=== PATIENT | male | born 1960 | race Caucasian/White ===

== ENCOUNTER 2018-06-16 13:23 | Observation (INO) ==
[2018-06-16 14:34] LABS: Baso # (Auto) 0.1 th/mm3 (0.0-0.2); Baso % (Auto) 0.9 % (0.0-2.0); Eos # (Auto) 0.3 th/mm3 (0.0-0.4); Eos % (Auto) 2.8 % (0.0-4.0); Hematocrit 43.9 % (39.0-51.0); Lymph # (Auto) 2.4 th/mm3 (1.0-4.8); Lymph % (Auto) 25.8 % (9.0-44.0); Mean Corpuscular HGB Conc 34.1 % (32.0-36.0); Mean Corpuscular Hemoglobin 32.4 pg (27.0-34.0); Mean Platelet Volume 8.8 fL (7.0-11.0); Mono # (Auto) 0.5 th/mm3 (0.0-0.9); Mono % (Auto) 5.9 % (0.0-8.0); Neut % (Auto) 64.6 % (16.0-70.0); Platelet Count 199 th/mm3 (150-450); Red Blood Count 4.62 mil/mm3 (4.50-5.90); White Blood Count 9.3 th/mm3 (4.0-11.0)
--- NOTE | 2018-06-16 14:34 | XR ---
EXAM DATE: 06/16/2018 2:30 PM EDT AGE/SEX: 58 years / Male INDICATIONS: Chest pain, short of breath. CLINICAL DATA: This is the patient's initial encounter. Patient reports that signs and symptoms have been present for 1 day and indicates a pain score of 7/10. MEDICAL/SURGICAL HISTORY: . smokes. Coronary artery stent. COMPARISON: POI, XR CHEST PA AND LAT, 11/09/2017. . FINDINGS: A single AP view of the chest demonstrates the lungs to be symmetrically aerated without evidence of mass, infiltrate or effusion. The cardiomediastinal contours are unremarkable. Osseous structures a re intact. CONCLUSION: Negative examination. Electronically signed by: Meliton Lantigua MD 06/16/2018 2:33 PM EDT
--- NOTE | 2018-06-16 14:41 | ED ---
HPI General Chief complaint: Chest Pain Stated complaint: Chest Pain Time Seen by Provider: 06/16/18 13:38 Source: patient Mode of arrival: ambulatory Limitations: no limitations History of Present Illness HPI narrative: he has been having on and off chest pains for years and has some type of angina he stayed but he does not appear to be on medications for it.The patient is a 58-year-old male presenting with complaint of left-sided chest pain rating shoulder and shortness of breath for the past week or so. Patient also reported to triage that he has being having nausea vomiting and shortness of breath. He stated that since this past Wednesday he is just not feeling right she tried to go to work on Wednesday but he had to leave 3 hours later because he felt very fatigued. On Wednesday he was started on metoprolol and NSAID as well as isosorbide and then went to the hospital in [place] was so advised to see a orthotic assistant who started him on metoprolol the patient is here because he does not feel comfortable at the other hospital and wants to get evaluated to see what exactly is going on hemodynamically stable at this time. Onset (ago): day(s) (6) Location: chest (Left upper chest) Radiation: extremity (Left shoulder) Severity: mild Severity scale (1-10): 4 Quality: other Relieving factors: rest Exacerbating factors: other (Exertion) Associated symptoms: chest pain, diaphoresis, malaise, nausea/vomiting, shortness of breath and weakness Treatments prior to arrival: none and aspirin (81mg) Related Data Home Medications Medication Instructions Recorded Confirmed etodolac 200 mg PO BID 06/16/18 06/16/18 isosorbide mononitrate 30 mg PO DAILY 06/16/18 06/16/18 metoprolol tartrate 25 mg PO BID 06/16/18 06/16/18 rosuvastatin 10 mg PO DAILY 06/16/18 06/16/18 Allergies Allergy/AdvReac Type Severity Reaction Status Date / Time No Known Allergies Allergy Verified 06/16/18 13:32 Review of Systems ROS: all other systems reviewed are negative [facility] Medical History Medical History Heart abnormality (Acute) Surgical History Surgical History Stented coronary artery (Acute) Social History Social History Second Hand Smoke Exposure: Yes Smoking Status: Current every day smoker Tobacco Type: Cigarettes How Often Do You Have a Drink Containing Alcohol: Never Recent Travel in [facility] within the Last 8 Weeks: No Recent Out of Country Travel within the Last 8 Weeks: No Immunization History Tetanus Immunization: Unsure Exam Narrative Exam Narrative: GENERAL: Alert and oriented no distress SKIN: Focused skin assessment warm/dry. HEAD: Atraumatic. Normocephalic. EYES: Pupils equal and round. No scleral icterus. No injection or drainage. ENT: No nasal bleeding or discharge. Mucous membranes pink and moist. NECK: Trachea midline. No JVD. CARDIOVASCULAR: Regular rate and rhythm. No murmur appreciated. RESPIRATORY: No accessory muscle use. Clear to auscultation. Breath sounds equal bilaterally. GASTROINTESTINAL: Abdomen soft, non-tender, nondistended. Hepatic and splenic margins not palpable. MUSCULOSKELETAL: No obvious deformities. No clubbing. No cyanosis. No edema. NEUROLOGICAL: Awake and alert. No obvious cranial nerve deficits. Motor grossly within normal limits. Normal speech. PSYCHIATRIC: Appropriate mood and affect; insight and judgment normal. Course Hospital Course: Due to complaint of atypical chest pain and nonspecific complaints we initiated a cardiac workup. Initial troponin and EKG have been unremarkable. Patient stated he feels exactly how he felt when he came in without any improvement we will placed under chest pain unit to rule out acute coronary syndrome. Hemodynamically stable alert and oriented no focal deficits. Reevaluation(s) Reevaluation #1: Patient says he feels about the same blood pressures improved 144/73 with a pulse of 95 bpm. When notified that he will be admitted to the chest pain unit. Initial Documented Vital Signs Temperature 98.2 F 06/16/18 13:26 Pulse Rate 95 H 06/16/18 13:26 Respiratory Rate 16 06/16/18 13:26 Blood Pressure 144/73 H 06/16/18 13:26 Pulse Oximetry 98 06/16/18 13:26 Last Documented Vital Signs Temperature 98.2 F 06/16/18 13:26 Pulse Rate 95 H 06/16/18 13:26 Respiratory Rate 16 06/16/18 13:26 Blood Pressure 144/73 H 06/16/18 13:26 Pulse Oximetry 98 06/16/18 13:26 Medical Decision Making MDM Narrative Medical Screen Exam Complete: Yes Emergency Medical Condition: Yes Medical Records Medical records reviewed: Yes I reviewed the patient's medical records. Lab Data Lab results reviewed: Yes I reviewed the patient's lab results. Result diagrams: 06/16/18 14:00 06/16/18 14:00 Lab Results 06/16/18 06/16/18 06/16/18 Range/Units 14:00 14:00 14:00 WBC 9.3 (4.0-11.0) th/mm3 RBC 4.62 (4.50-5.90) mil/mm3 Hgb 15.0 (13.0-17.0) gm/dL Hct 43.9 (39.0-51.0) % MCV 95.0 (80.0-100.0) fL MCH 32.4 (27.0-34.0) pg MCHC 34.1 (32.0-36.0) % RDW 13.0 (11.6-17.2) % Plt Count 199 (150-450) th/mm3 MPV 8.8 (7.0-11.0) fL Neut % (Auto) 64.6 (16.0-70.0) % Lymph % (Auto) 25.8 (9.0-44.0) % [place] % (Auto) 5.9 (0.0-8.0) % Eos % (Auto) 2.8 (0.0-4.0) % Baso % (Auto) 0.9 (0.0-2.0) % Neut # (Auto) 6.0 (1.8-7.7) th/mm3 Lymph # (Auto) 2.4 (1.0-4.8) th/mm3 [place] # (Auto) 0.5 (0.0-0.9) th/mm3 Eos # (Auto) 0.3 (0.0-0.4) th/mm3 Baso # (Auto) 0.1 (0.0-0.2) th/mm3 WBC Differential . Differential Comment Auto diff final PT 10.2 (9.8-11.6) sec INR 1.0 Ratio APTT 26.5 (24.3-30.1) sec D-Dimer Quant (PE/DVT) 0.46 (0.00-0.50) mg/L FEU Sodium 139 (136-145) meq/L Potassium 3.6 (3.5-5.1) meq/L Chloride 106 (98-107) meq/L Carbon Dioxide 23.4 (21.0-32.0) meq/L Anion Gap 10 (5-15) meq/L BUN 17 (7-18) mg/dL Creatinine 1.00 (0.60-1.30) mg/dL Estimated GFR 77 L (>89) mL/min Random Glucose 131 H (74-106) mg/dL Calcium 8.3 L (8.5-10.1) mg/dL Magnesium 2.1 (1.5-2.5) mg/dL Total Bilirubin 0.3 (0.2-1.0) mg/dL AST 19 (15-37) U/L ALT 31 (12-78) U/L Alkaline Phosphatase 88 (45-117) U/L Troponin I Less than 0.02 L (0.02-0.05) ng/mL B-Natriuretic Peptide (0-100) pg/mL Total Protein 7.8 (6.4-8.2) g/dL Albumin 3.4 (3.4-5.0) g/dL 06/16/18 Range/Units 14:00 WBC (4.0-11.0) th/mm3 RBC (4.50-5.90) mil/mm3 Hgb (13.0-17.0) gm/dL Hct (39.0-51.0) % MCV (80.0-100.0) fL MCH (27.0-34.0) pg MCHC (32.0-36.0) % RDW (11.6-17.2) % Plt Count (150-450) th/mm3 MPV (7.0-11.0) fL Neut % (Auto) (16.0-70.0) % Lymph % (Auto) (9.0-44.0) % [place] % (Auto) (0.0-8.0) % Eos % (Auto) (0.0-4.0) % Baso % (Auto) (0.0-2.0) % Neut # (Auto) (1.8-7.7) th/mm3 Lymph # (Auto) (1.0-4.8) th/mm3 [place] # (Auto) (0.0-0.9) th/mm3 Eos # (Auto) (0.0-0.4) th/mm3 Baso # (Auto) (0.0-0.2) th/mm3 WBC Differential Differential Comment PT (9.8-11.6) sec INR Ratio APTT (24.3-30.1) sec D-Dimer Quant (PE/DVT) (0.00-0.50) mg/L FEU Sodium (136-145) meq/L Potassium (3.5-5.1) meq/L Chloride (98-107) meq/L Carbon Dioxide (21.0-32.0) meq/L Anion Gap (5-15) meq/L BUN (7-18) mg/dL Creatinine (0.60-1.30) mg/dL Estimated GFR (>89) mL/min Random Glucose (74-106) mg/dL Calcium (8.5-10.1) mg/dL Magnesium (1.5-2.5) mg/dL Total Bilirubin (0.2-1.0) mg/dL AST (15-37) U/L ALT (12-78) U/L Alkaline Phosphatase (45-117) U/L Troponin I (0.02-0.05) ng/mL B-Natriuretic Peptide 5 (0-100) pg/mL Total Protein (6.4-8.2) g/dL Albumin (3.4-5.0) g/dL Imaging Data Radiologist's impression: Chest X-Ray 06/16/18 14:00 CONCLUSION: Negative examination. ECG Data EKG Prior to Arrival: No Attestation: I personally reviewed and interpreted this ECG as follows: Interpretation: Normal sinus rhythm 86 bpm [place] interval 154 ms QTc 394. Normal axis. Nonspecific ST-T wave abnormalities. No signs of acute ischemia. Discharge Plan Discharge Disposition Patient Disposition: 30 Still Patient Discharge Condition Condition: Good Discharge Details Diagnosis: Atypical chest pain Physicians Team ED Provider: Jean Maldonado Rxs /Orders / Referrals /Forms Prescriptions: No Action etodolac 200 mg Capsule 200 mg PO BID RF: 0 isosorbide mononitrate 30 mg Tablet Extended Release 24 Hr 30 mg PO DAILY RF: 0 rosuvastatin 10 mg Tablet 10 mg PO DAILY RF: 0 metoprolol tartrate 25 mg Tablet 25 mg PO BID RF: 0 Discharge Instructions Patient Printed Instructions: Chest Pain (ED) Status ED Status: With Doctor
[2018-06-16 14:47] LABS: Activated Partial Thrombo Time 26.5 sec (24.3-30.1); Prothrombin Time 10.2 sec (9.8-11.6)
[2018-06-16 14:53] LABS: D-Dimer 0.46 mg/L FEU (0.00-0.50)
[2018-06-16 14:59] LABS: Alanine Aminotransferase 31 U/L (12-78); Albumin 3.4 g/dL (3.4-5.0); Alkaline Phosphatase 88 U/L (45-117); Anion Gap 10 meq/L (5-15); Aspartate Aminotransferase 19 U/L (15-37); Blood Urea Nitrogen 17 mg/dL (7-18); Calcium 8.3 mg/dL (8.5-10.1); Carbon Dioxide 23.4 meq/L (21.0-32.0); Chloride 106 meq/L (98-107); Glomerular Filtration Rate 77 mL/min (>89); Glucose,Random 131 mg/dL (74-106); Magnesium 2.1 mg/dL (1.5-2.5); Potassium 3.6 meq/L (3.5-5.1); Sodium 139 meq/L (136-145); Total Protein 7.8 g/dL (6.4-8.2)
[2018-06-16] MEDS ORDERED: Iohexol 350 MG/ML 100 ML Vial (for Cath Lab) IVCONTRAST ONE (15:45)
[2018-06-16 17:00] LABS: Creatine Kinase 95 U/L (39-308)
[2018-06-16 19:41] LABS: Creatine Kinase 99 U/L (39-308)
[2018-06-17 04:05] VITALS: O2SAT 97
[2018-06-17] MEDS ORDERED: Acetaminophen 500 MG Tablet PO PRN (07:37)
--- NOTE | 2018-06-17 07:47 | P.HPCA ---
History of Present Illness [facility] Care Physician: [facility]KNOWN [facility] - History History Provided By: Patient - Medical History Medical History: Medical History (Last Reviewed 06/16/18 @ 14:39 by Jean Maldonado DO) Heart abnormality - Surgical History Surgical History: Surgical History (Last Reviewed 06/16/18 @ 14:39 by Jean Maldonado DO) Stented coronary artery - Tobacco History Second Hand Smoke Exposure: No Tobacco Use In Past 30 Days: Yes Smoking Status: Never smoker Tobacco Type: Cigarettes - Alcohol History How Often Do You Have a Drink Containing Alcohol: Monthly or less - Substance Use History Substance History: No History of Abuse - Travel History Recent Travel in the [place] Within the Last 8 Weeks: No Recent Travel Out of the Country Within the Last 8 Weeks: No - Immunization History Tetanus Immunization: Unsure Medications and Allergies Active Medications: Active Medications Acetaminophen (Tylenol) 500 mg PO Q4H PRN PRN Reason: HEADACHE Nitroglycerin (Nitrostat Sl) 0.4 mg SL Q5M PRN PRN Reason: CHEST PAIN Ondansetron HCl (Zofran Inj) 4 mg IV.PUSH Q6H PRN PRN Reason: NAUSEA Sodium Chloride (Ns Flush) 2 ml IV.FLUSH UNSCH PRN PRN Reason: FLUSH AFTER USING IV ACCESS Sodium Chloride (Ns Flush) 2 ml IV.FLUSH BID WANDA Last Admin: 06/16/18 22:21 Dose: 2 ml Sodium Chloride (Ns Flush) 2 ml IV.FLUSH PRN PRN PRN Reason: FLUSH AFTER USING IV ACCESS Allergies Allergy/AdvReac Type Severity Reaction Status Date / Time No Known Allergies Allergy Verified 06/16/18 13:32 Home Medications Medication Instructions Recorded Confirmed Type etodolac 200 mg PO BID 06/16/18 06/16/18 History isosorbide mononitrate 30 mg PO DAILY 06/16/18 06/16/18 History metoprolol tartrate 25 mg PO BID 06/16/18 06/16/18 History rosuvastatin 10 mg PO DAILY 06/16/18 06/16/18 History Exam Vital signs: Vital Signs 06/16/18 13:26 06/16/18 14:00 06/16/18 16:03 Temperature 98.2 F Pulse Rate 95 H 81 Respiratory Rate 16 17 Blood Pressure 144/73 H 127/64 Pulse Oximetry 98 100 98 06/16/18 17:33 06/16/18 18:01 06/16/18 18:11 Temperature 97.8 F Pulse Rate 74 71 Respiratory Rate 16 Blood Pressure 148/80 H Pulse Oximetry 96 99 06/16/18 19:28 06/16/18 20:00 06/16/18 23:35 Temperature 98.8 F 98.8 F Pulse Rate 71 65 77 Respiratory Rate 17 17 Blood Pressure 123/64 105/61 Pulse Oximetry 96 96 06/17/18 04:00 Temperature 98.8 F Pulse Rate 68 Respiratory Rate 16 Blood Pressure 121/64 Pulse Oximetry 97 Intake & Output 06/16/18 06/17/18 06/17/18 18:59 06:59 18:59 Intake Total 250 / 250 Balance 250 / 250 Weight 105.233 kg 105.233 kg Intake: Oral 250 / 250 Other: Weight On Admission 105.233 kg Results 06/16/18 14:00 06/16/18 14:00 Cardiac Enzymes 06/16/18 06/16/18 06/16/18 Range/Units 14:00 14:00 15:50 AST 19 (15-37) U/L Troponin I Less than 0.02 L Less than 0.02 L (0.02-0.05) ng/mL B-Natriuretic Peptide 5 (0-100) pg/mL 06/16/18 Range/Units 18:45 AST (15-37) U/L Troponin I Less than 0.02 L (0.02-0.05) ng/mL B-Natriuretic Peptide (0-100) pg/mL Coagulation 06/16/18 06/16/18 Range/Units 14:00 14:00 PT 10.2 (9.8-11.6) sec APTT 26.5 (24.3-30.1) sec B-Natriuretic Peptide 5 (0-100) pg/mL CBC 06/16/18 Range/Units 14:00 WBC 9.3 (4.0-11.0) th/mm3 RBC 4.62 (4.50-5.90) mil/mm3 Hgb 15.0 (13.0-17.0) gm/dL Hct 43.9 (39.0-51.0) % Plt Count 199 (150-450) th/mm3 Neut # (Auto) 6.0 (1.8-7.7) th/mm3 Lymph # (Auto) 2.4 (1.0-4.8) th/mm3 [place] # (Auto) 0.5 (0.0-0.9) th/mm3 Eos # (Auto) 0.3 (0.0-0.4) th/mm3 Baso # (Auto) 0.1 (0.0-0.2) th/mm3 Comprehensive Metabolic Panel 06/16/18 Range/Units 14:00 Sodium 139 (136-145) meq/L Potassium 3.6 (3.5-5.1) meq/L Chloride 106 (98-107) meq/L Carbon Dioxide 23.4 (21.0-32.0) meq/L BUN 17 (7-18) mg/dL Creatinine 1.00 (0.60-1.30) mg/dL Calcium 8.3 L (8.5-10.1) mg/dL AST 19 (15-37) U/L ALT 31 (12-78) U/L Alkaline Phosphatase 88 (45-117) U/L Total Protein 7.8 (6.4-8.2) g/dL Albumin 3.4 (3.4-5.0) g/dL Intake and Output 06/16/18 06/17/18 06/17/18 22:59 06:59 14:59 Intake Total 250 / 250 Balance 250 / 250 Intake: Oral 250 / 250 Other: Weight 105.233 kg Weight On Admission 105.233 kg Caprini VTE Risk Assessment Caprini Risk Assessment Model: Point Value = 1 Point Value = 2 Point Value = 3 Point Value = 5 Age 41-60 Minor surgery BMI > 25 kg/m2 Swollen legs Varicose veins or History of unexplained or recurrent spontaneous Oral contraceptives or hormone replacement Sepsis (< 1 month) Serious lung disease, including pneumonia (< 1 month) Abnormal pulmonary function Acute myocardial infarction Congestive heart failure (< 1 month) History of inflammatory bowel disease Medical patient at bed rest Age 61-74 Arthroscopic surgery Major open surgery (> 45 min) Laparoscopic surgery (> 45 min) Malignancy Confined to bed (> 72 hours) Immobilizing plaster cast Central venous access Age >= 75 History of VTE Family history of VTE Factor V Leiden Prothrombin [id number] Lupus anticoagulant Anticardiolipin antibodies Elevated serum homocysteine Heparin-induced thrombocytopenia Other congenital or acquired thrombophilia Stroke (< 1 month) Elective arthroplasty Hip, pelvis, or leg fracture Acute spinal cord injury (< 1 month) Prophylaxis Regimen: Total Risk Factor Score Risk Level Prophylaxis Regimen 0-1 Low Early ambulation 2 Moderate Order ONE of the following: *Sequential Compression Device (SCD) *Heparin 5000 units SQ BID 3-4 Higher Order ONE of the following medications: *Heparin 5000 units SQ TID *Enoxaparin/Lovenox 40 mg SQ daily (WT < 150 kg, CrCl > 30 mL/min) *Enoxaparin/Lovenox 30 mg SQ daily (WT < 150 kg, CrCl > 10-29 mL/min) *Enoxaparin/Lovenox 30 mg SQ BID (WT < 150 kg, CrCl > 30 mL/min) AND/OR *Sequential Compression Device (SCD) 5 or more Highest Order ONE of the following medications: *Heparin 5000 units SQ TID (Preferred with Epidurals) *Enoxaparin/Lovenox 40 mg SQ daily (WT < 150 kg, CrCl > 30 mL/min) *Enoxaparin/Lovenox 30 mg SQ daily (WT < 150 kg, CrCl > 10-29 mL/min) *Enoxaparin/Lovenox 30 mg SQ BID (WT < 150 kg, CrCl > 30 mL/min) AND *Sequential Compression Device (SCD) H&P: Quality - VTE Deep Vein Thrombosis/Pulmonary Embolism Present on Admission: No
[2018-06-17] MEDS ORDERED: Heparin/NS PF Inj 1,000 ML ONE (09:38)
[2018-06-17] MEDS ORDERED: Heparin 10,000 UNITS/10 ML Vial (for IV use) ONE (09:38)
[2018-06-17] MEDS ORDERED: fentaNYL Citrate Inj 100 MCG/2 ML Ampul ONE (09:38)
--- NOTE | 2018-06-17 11:37 | P.HPCA ---
History of Present Illness Service: Cardiology Primary Care Physician: UNKNOWN Chief Complaint: Chest pain History of Present Illness: This is a 58-year-old male with history of known coronary disease and prior percutaneous coronary intervention in 2008 at [facility]. Patient had recently seen my partner Dr. Rosa in the outpatient setting this last Wednesday, which was 3 days ago. At that time he is was describing worsening chest pain with exertion associated with some dizziness and lightheadedness. He was started on isosorbide. Patient continued to have progressive symptoms and came into the emergency department. He was transferred to the chest pain center. Dr. Nolasco saw him there, after discussion with the patient felt that consideration for cardiac catheterization may be more appropriate than stress testing given his suggestive symptoms and known history. Patient states that he has had symptoms now for the course of the last few weeks which has been getting worse. He states these are similar to his prior angina. - Diagnosis (1) Unstable angina pectoris Review of Systems All other systems reviewed negative except as stated in HPI PMFSH - History History Provided By: Patient - Medical History Medical History: Medical History (Last Updated 06/17/18 @ 11:34 by Meliton Reyes MD) Contraindication to percutaneous coronary intervention (PCI) Coronary artery disease Heart abnormality Hyperlipidemia Hypertension - Surgical History Surgical History: Surgical History (Last Reviewed 06/16/18 @ 14:39 by Jean Maldonado DO) Stented coronary artery - Tobacco History Second Hand Smoke Exposure: No Tobacco Use In Past 30 Days: Yes Smoking Status: Never smoker Tobacco Type: Cigarettes - Alcohol History How Often Do You Have a Drink Containing Alcohol: Monthly or less - Substance Use History Substance History: No History of Abuse - Travel History Recent Travel in the [place] Within the Last 8 Weeks: No Recent Travel Out of the Country Within the Last 8 Weeks: No - Immunization History Tetanus Immunization: Unsure Medications and Allergies Active Medications: Active Medications Acetaminophen (Tylenol) 500 mg PO Q4H PRN PRN Reason: HEADACHE Nitroglycerin (Nitrostat Sl) 0.4 mg SL Q5M PRN PRN Reason: CHEST PAIN Ondansetron HCl (Zofran Inj) 4 mg IV.PUSH Q6H PRN PRN Reason: NAUSEA Sodium Chloride (Ns Flush) 2 ml IV.FLUSH BID WANDA Last Admin: 06/17/18 09:26 Dose: 2 ml Sodium Chloride (Ns Flush) 2 ml IV.FLUSH PRN PRN PRN Reason: FLUSH AFTER USING IV ACCESS Allergies Allergy/AdvReac Type Severity Reaction Status Date / Time No Known Allergies Allergy Verified 06/16/18 13:32 Home Medications Medication Instructions Recorded Confirmed Type etodolac 200 mg PO BID 06/16/18 06/16/18 History isosorbide mononitrate 30 mg PO DAILY 06/16/18 06/16/18 History metoprolol tartrate 25 mg PO BID 06/16/18 06/16/18 History rosuvastatin 10 mg PO DAILY 06/16/18 06/16/18 History Exam Vital signs: Vital Signs 06/16/18 13:26 06/16/18 14:00 06/16/18 16:03 Temperature 98.2 F Pulse Rate 95 H 81 Respiratory Rate 16 17 Blood Pressure 144/73 H 127/64 Pulse Oximetry 98 100 98 06/16/18 17:33 06/16/18 18:01 06/16/18 18:11 Temperature 97.8 F Pulse Rate 74 71 Respiratory Rate 16 Blood Pressure 148/80 H Pulse Oximetry 96 99 06/16/18 19:28 06/16/18 20:00 06/16/18 23:35 Temperature 98.8 F 98.8 F Pulse Rate 71 65 77 Respiratory Rate 17 17 Blood Pressure 123/64 105/61 Pulse Oximetry 96 96 06/17/18 04:00 06/17/18 07:58 Temperature 98.8 F 98.1 F Pulse Rate 68 72 Respiratory Rate 16 16 Blood Pressure 121/64 135/85 Pulse Oximetry 97 Intake & Output 06/16/18 06/17/18 06/17/18 18:59 06:59 18:59 Intake Total 250 / 250 Balance 250 / 250 Weight 105.233 kg 105.233 kg Intake: Oral 250 / 250 Other: Weight On Admission 105.233 kg - Constitutional no acute distress - Routine HEENT Exam Eye: Present: EOMI, PERRL ENT: Present: mucous membranes moist - Routine Neck Exam Absent: JVD - Routine Respiratory Exam Present: CTA bilaterally - Routine Cardiovascular Exam Present: RRR. Absent: murmur - Routine Abdominal Exam Present: soft, normoactive bowel sounds - Routine Extremities Exam Absent: cyanosis, clubbing, edema - Routine Neurological Exam Present: oriented X3, CN II-XII intact, sensory deficit, motor deficit Results 06/16/18 14:00 06/16/18 14:00 Cardiac Enzymes 06/16/18 06/16/18 06/16/18 Range/Units 14:00 14:00 15:50 AST 19 (15-37) U/L Troponin I Less than 0.02 L Less than 0.02 L (0.02-0.05) ng/mL B-Natriuretic Peptide 5 (0-100) pg/mL 06/16/18 Range/Units 18:45 AST (15-37) U/L Troponin I Less than 0.02 L (0.02-0.05) ng/mL B-Natriuretic Peptide (0-100) pg/mL Coagulation 06/16/18 06/16/18 Range/Units 14:00 14:00 PT 10.2 (9.8-11.6) sec APTT 26.5 (24.3-30.1) sec B-Natriuretic Peptide 5 (0-100) pg/mL CBC 06/16/18 Range/Units 14:00 WBC 9.3 (4.0-11.0) th/mm3 RBC 4.62 (4.50-5.90) mil/mm3 Hgb 15.0 (13.0-17.0) gm/dL Hct 43.9 (39.0-51.0) % Plt Count 199 (150-450) th/mm3 Neut # (Auto) 6.0 (1.8-7.7) th/mm3 Lymph # (Auto) 2.4 (1.0-4.8) th/mm3 [place] # (Auto) 0.5 (0.0-0.9) th/mm3 Eos # (Auto) 0.3 (0.0-0.4) th/mm3 Baso # (Auto) 0.1 (0.0-0.2) th/mm3 Comprehensive Metabolic Panel 06/16/18 Range/Units 14:00 Sodium 139 (136-145) meq/L Potassium 3.6 (3.5-5.1) meq/L Chloride 106 (98-107) meq/L Carbon Dioxide 23.4 (21.0-32.0) meq/L BUN 17 (7-18) mg/dL Creatinine 1.00 (0.60-1.30) mg/dL Calcium 8.3 L (8.5-10.1) mg/dL AST 19 (15-37) U/L ALT 31 (12-78) U/L Alkaline Phosphatase 88 (45-117) U/L Total Protein 7.8 (6.4-8.2) g/dL Albumin 3.4 (3.4-5.0) g/dL Intake and Output 06/16/18 06/17/18 06/17/18 22:59 06:59 14:59 Intake Total 250 / 250 Balance 250 / 250 Intake: Oral 250 / 250 Other: Weight 105.233 kg Weight On Admission 105.233 kg EKG interpretations - Dysrhythmias Sinus rhythms and dysrhythmias: sinus rhythm Caprini VTE Risk Assessment Caprini VTE Risk Assessment: No/Low Risk (score <= 1) Caprini Risk Assessment Model: Point Value = 1 Point Value = 2 Point Value = 3 Point Value = 5 Age 41-60 Minor surgery BMI > 25 kg/m2 Swollen legs Varicose veins or History of unexplained or recurrent spontaneous Oral contraceptives or hormone replacement Sepsis (< 1 month) Serious lung disease, including pneumonia (< 1 month) Abnormal pulmonary function Acute myocardial infarction Congestive heart failure (< 1 month) History of inflammatory bowel disease Medical patient at bed rest Age 61-74 Arthroscopic surgery Major open surgery (> 45 min) Laparoscopic surgery (> 45 min) Malignancy Confined to bed (> 72 hours) Immobilizing plaster cast Central venous access Age >= 75 History of VTE Family history of VTE Factor V Leiden Prothrombin [id number] Lupus anticoagulant Anticardiolipin antibodies Elevated serum homocysteine Heparin-induced thrombocytopenia Other congenital or acquired thrombophilia Stroke (< 1 month) Elective arthroplasty Hip, pelvis, or leg fracture Acute spinal cord injury (< 1 month) Prophylaxis Regimen: Total Risk Factor Score Risk Level Prophylaxis Regimen 0-1 Low Early ambulation 2 Moderate Order ONE of the following: *Sequential Compression Device (SCD) *Heparin 5000 units SQ BID 3-4 Higher Order ONE of the following medications: *Heparin 5000 units SQ TID *Enoxaparin/Lovenox 40 mg SQ daily (WT < 150 kg, CrCl > 30 mL/min) *Enoxaparin/Lovenox 30 mg SQ daily (WT < 150 kg, CrCl > 10-29 mL/min) *Enoxaparin/Lovenox 30 mg SQ BID (WT < 150 kg, CrCl > 30 mL/min) AND/OR *Sequential Compression Device (SCD) 5 or more Highest Order ONE of the following medications: *Heparin 5000 units SQ TID (Preferred with Epidurals) *Enoxaparin/Lovenox 40 mg SQ daily (WT < 150 kg, CrCl > 30 mL/min) *Enoxaparin/Lovenox 30 mg SQ daily (WT < 150 kg, CrCl > 10-29 mL/min) *Enoxaparin/Lovenox 30 mg SQ BID (WT < 150 kg, CrCl > 30 mL/min) AND *Sequential Compression Device (SCD) Assessment and Plan - Assessment (1) Unstable angina pectoris Code(s): I20.0 - Unstable angina Status: Acute - Plan Is a 58-year-old male with history of known coronary disease and prior percutaneous intervention who now presents with symptoms of progressive unstable angina, CCS class III4 symptoms. Patient was planned for stress testing. Patient was initiated on guideline directed medical therapy with long- acting nitrate beta-ap. Despite this, he continues to have worsening symptoms. Initial electrocardiogram was unremarkable for any significant ischemic changes. Cardiac biomarkers were negative. After discussion with Dr. Nolasco and the chest pain center, given his high likelihood for disease and suggestive symptoms we elected to proceed with coronary angiogram given his acute coronary syndrome. Respective alternatives discussed with the patient patient understood and consented to proceed. H&P: Quality - VTE Deep Vein Thrombosis/Pulmonary Embolism Present on Admission: No
[2018-06-17] MEDS ORDERED: Adenosine Stress Test 90 MG/30 ML Vial IV.SIG ONE (12:49)
[2018-06-17] MEDS ORDERED: Misc Info for Pharmacy OTHER STA (13:08)
[2018-06-17] MEDS ORDERED: Atropine Inj 1 MG/ML Vial IV.PUSH PRN (13:08)
[2018-06-17] MEDS ORDERED: oxyCODONE/Acetaminophen 10/325 Tablet PO PRN (13:08)
[2018-06-17] MEDS ORDERED: Morphine Sulfate Inj 2 MG/ML Vial IV.PUSH PRN (13:08)
[2018-06-17] MEDS ORDERED: Acetaminophen 325 MG Tablet PO PRN (13:08)
[2018-06-17] MEDS ORDERED: Sodium Chlor 0.9% Inj 250 ML IV.SIG ONE (13:08)
[2018-06-17] MEDS ORDERED: Lidocaine 2% Jelly 5 ML Syringe TOPICAL PRN (13:08)
[2018-06-17] MEDS ORDERED: Isosorbide Mononitrate 30 MG ER 24HR Tablet (Imdur) PO SCH (13:10)
--- NOTE | 2018-06-17 13:18 | CATHPROC ---
[facility] HIS Report Study Information Study Number Admission Scheduled Start Study Start [id number] Jun 16 2018 3:44PM 06/17/2018 Jun 17 2018 9:32AM [place] Service Cardiac Catheterization Admit Source Facility Department Emergency department [facility] - Embedded Hardware Engineer Physician and Clinical Staff Initial Meliton Rose Senior Sales Consultant Anders KenneyRN Recorder Kisha Castro,RT(R) Scrub Riley Moralez RCIS(BS) Procedures Performed Procedure Location (Site) Vessel Name Coronary Angiograms LCA Left Coronary Coronary Angiograms RCA Right Coronary Drug Eluting Inflatio LAD Mid Left Coronary L Heart Cath Wire insertion Radial (right) Radial Art. Equipment Time Facilities Maintenance Manager Description Size Mfg Part Number Used/Scraped COPILOT VALVE, BLEEDBACK [id number] 12:43 [employer] Used CONTROL *[id number] TRANSDUCER, TRUWAVE [id number] 09:45 GIRON KHANNA * Used W/STOCKCOCK *[id number] TRANSDUCER, TRUWAVE [id number] 12:14 GIRON KHANNA * Used W/STOCKCOCK *[id number] 534-518T *[id number] 534-523T *[id number] *[id number] 12:14 [employer] BLANKET,WARM AIR CCL * Used *[id number] 09:45 [employer] BLANKET,WARM AIR CCL * Used *[id number] 09:45 [employer] PACK, CCL CUSTOM * Used *[id number] 12:14 [employer] PACK, CCL CUSTOM * Used *[id number] 12:14 [employer] SUPPORT, ARTERIAL ADULT 30731 *[id number] Used 09:45 [employer] SUPPORT, ARTERIAL ADULT 36438 *[id number] Used [id number] 12:58 MEDTRONIC STENT, 3.0 18MM HEBER 3.0 18MM Used *[id number] 12:43 ShinyByte 30 MARISOL INDEFLATOR Used *[id number] BAND, RADIAL COMPRESSION TR [id number] 13:05 Shiny[employer] 29CM Used LARGE 29 *[id number] SHEATH, FR6 RADIAL PRELUDE 09:45 Shiny[employer] FR 6 [id number] Used EASE 11CM SHEATH, FR6 RADIAL PRELUDE 12:14 [employer] FR 6 [id number] Used EASE 11CM [id number] 12:14 MERIT [employer]ICAL WIRE, EXCHANGE 260CM 3MMJ 260CM Used *[id number] 09:45 SHREYA MEDICAL WIRE, EXCHANGE 260CM 3MMJ 260CM Used *[id number] 09:45 NAMIC MANIFOLD, 4 PORT * Used *[id number] 12:14 NAMIC MANIFOLD, 4 PORT * Used *[id number] 12:14 NYCOMED OMNIPAQUE, 350 MG, 150ML 150ML [id number] Used 09:45 NYCOMED OMNIPAQUE, 350 MG, 150ML 150ML [id number] Used [id number] 12:43 [employer]OL[employer] PRIME WIRE, VERRATA 185CM 185CM Used *[id number] Equipment Model, Serial, Lot Number and Expiration Data Description Model Number Serial Number Lot Number Expiration Date STENT, 3.0 18MM HEBER [id number] 12-21-2019 History: Current Medications Medication Dosage/Unit Route Frequency Last Date/Time Taken ASA Statins (any) Beta Ankit History: Allergies Allergy Reaction No Known Allergies History: Risk Factors Family History of Hypertension Dyslipidemia Previous AK Previous Heart Failure Premature CAD No No No No No Prior Valve Prior PCI Prior PCIDate Prior CABG Surgery No Yes 09/27/2009 No Cerebrovascular Peripheral Artery Chronic Lung On Dialysis Diabetes Disease Disease Disease No No No No No History: Symptoms/Diagnosis Selection Items Chest pain History: Other Current Smoker Method Packs a Day Years Used Pack Years Yes Cigarettes 1 28 Labs Hgb (g/dl) Hct (%) WBC (l/cumm) Platelets (thousands) 11.60-17.00 35.00-51.00 4.00-11.00 150.00-450.00 15.0 43.9 9.3 199 Glucose (mg/dl) BUN (mg/dl) Creatinine (mg/dl) BUN:Creatinine (1:x) 74.00-106.00 7.00-18.00 0.50-1.30 10.00-20.00 131 17 1.0 17 Na (meq/l) K (meq/l) 136.00-145.00 3.50-5.10 139 3.6 INR (PTT:PT) 0.90-1.10 1 Troponin I (ng/ml) CPK (u/l) CPK-MB (ng/ML) 0.02-0.05 26.00-308.00 0.50-3.60 0.02 99 Not Drawn Medication Medication Total Dose (Bolus/Oral) Medication Total Dosage/Unit 1% XYLOCAINE 5 mL FENTANYL 50 mcg HEPARIN 7000 units NTG (IC) 200 mcg PLAVIX 600 mg VERSED 3 mg Medications (Bolus/Oral) Medication Time Given Dosage/Unit Administered By Reason VERSED 06/17/2018 12:28:54 PM 2 mg Pablito, Anders 2 mg VERSED given in lab by Anders Kenney RN in Left Antecubital via Peripheral IV. Ordered by Meliton Reyes. FENTANYL 06/17/2018 12:33:09 PM 25 mcg Pablito, Anders 25 mcg FENTANYL given in lab by Anders Kenney RN in Left Antecubital via Peripheral IV. Ordered by Meliton Ramirez. 1% XYLOCAINE 06/17/2018 12:35:05 PM 5 mL Meliton Reyes 5 mL 1% XYLOCAINE given in lab by Meliton Reyes in Right Radial via Subcutaneous. NTG (IC) 06/17/2018 12:36:39 PM 200 mcg Meliton Reyes 200 mcg NTG (IC) given in lab by Meliton Reyes in Right Radial via Intra-arterial. HEPARIN 06/17/2018 12:41:44 PM 5000 units Pablito, Anders 5000 units HEPARIN given in lab by Anders Kenney RN in Left Antecubital via Peripheral IV. Ordered by Meliton Reyes. HEPARIN 06/17/2018 12:50:50 PM 2000 units Pablito, Anders 2000 units HEPARIN given in lab by Anders Kenney RN in Left Antecubital via Peripheral IV. Ordered by Meliton Reyes. VERSED 06/17/2018 12:56:50 PM 1 mg Pablito, Anders 1 mg VERSED given in lab by Anders Kenney RN in Left Antecubital via Peripheral IV. Ordered by Meliton Reyes. FENTANYL 06/17/2018 12:57:11 PM 25 mcg Pablito, Anders 25 mcg FENTANYL given in lab by Anders Kenney RN in Left Antecubital via Peripheral IV. Ordered by Meliton Ramirez. PLAVIX 06/17/2018 1:00:34 PM 600 mg Pablito, Anders 600 mg PLAVIX given in lab by Anders Kenney RN via Oral. Ordered by Meliton Reyes. Medication (Drip) Medication Time Given Dosage/Unit Concentration/Unit Diluent (ml) Solution ADENOSINE DRIP 06/17/2018 12:53:12 PM 140 mcg/kg/min 90 mg 90 NaCl .9 140 mcg/kg/min ADENOSINE DRIP given in lab by Anders Kenney RN in Left Antecubital via Peripheral IV. Pump/Drip Flow = 883.68 ml/hr using NaCl .9 with a concentration of 90 mg in 90 ml. Ordered by Meliton Reyes. ADENOSINE DRIP 06/17/2018 12:55:42 PM 140 mcg/kg/min g 0 D5W STOPPED 140 mcg/kg/min ADENOSINE DRIP STOPPED given in lab by Anders Kenney RN. Pump/Drip Flow = 0 ml/hr usin g D5W. Ordered by Meliton Reyes. IV Solutions 06/17/2018 12:15:30 PM 50 mL (IV) NaCl .9 IV Solutions given in lab by Anders Kenney RN in Left Antecubital via Peripheral IV. Pump/Drip Flow u sing NaCl .9. Initial Case Assessment Cardiovascular Chest Pain 0 Edema Present Skin color Skin None Normal Warm Dry Circulatory - Right Pulses Dorsalis Pedis Femoral Radial 2 2 2 Scale (0,1,2,3,4,d) Scale (0,1,2,3,4,d) Neurological State Oriented to time-place- Alert Moves all extremities person Chronological Log Time Study Chronological Log 9:31:11 Patient arrived via Bed. 9:32:15 Patient Name, D.O.B, / Armband Verified By R.N. 9:32:15 Consent signed by the physician and the patient and verified by the Embedded Hardware Engineer staff. 9:32:15 Pre-op and post- op instructions given; patient acknowledges understanding of instructions. 9:32:18 Presedation assessment performed by Embedded Hardware Engineer RN. 9:32:22 Allens test performed on the right radial and ulnar artery. 9:32:25 Patient has been NPO for More than 6Hrs. 9:32:26 Skin Breakdown- none per pt 9:32:27 Patient Warmer Placed on the Table. 9:32:28 Martin Prominences Protected 9:32:28 A # 20 IV was noted in the Antecubital (left). Grade = 0 9:32:31 History and physical on the chart or being dictated. Assessment: Initial Case, Chest Pain=0, Edema=None, Color=Normal, Skin = Warm, Dry 9:32:34 Right Pulses: Luis Alberto Ped=2, Femoral=2, Radial=2 Neurological: State=Alert, Ox3, GONZÁLES Vitals capture started with the following parameters, Patient=Adult, Interval=5 min, Initial P ghahncl=046 mmHg, 9:37:12 Deflation Rate=5 mmHg, Cuff placed on Left Arm 9:37:58 HR=74 bpm, BSCT=315/93 mmhg, SpO2=95 %, Resp=15 B/min 9:42:57 HR=74 bpm, HYMK=735/95 mmhg, SpO2=97.0 %, Resp=11 B/min 9:45:30 Reference ECG taken 9:45:48 Right Radial and groin(s) prepped with 2% chlorhexidine, and draped after a 3 min. waiting time. 9:47:58 HR=69 bpm, ABMU=302/88 mmhg, SpO2=97.0 %, Resp=20 B/min 9:48:27 Pressure channel 2 zeroed. 9:50:33 STEMI called. Pt removed from lab due to emergency case 9:52:43 Vitals capture stopped. 12:11:11 Patient arrived via Bed. Vitals capture started with the following parameters, Patient=Adult, Interval=5 min, Initial Pr dzbuzp=984 mmHg, 12:13:48 Deflation Rate=5 mmHg, Cuff placed on Left Arm 12:15:05 HR=67 bpm, UBZG=227/84 mmhg, SpO2=97.0 %, Resp=13 B/min 12:15:28 Reference ECG taken 12:15:30 IV Solutions given in lab by Anders Kenney, RN in Left Antecubital via Peripheral IV. Pump/D rip Flow using NaCl .9. 12:18:20 Right Radial and groin(s) prepped with 2% chlorhexidine, and draped after a 3 min. waiting time. 12:19:33 HR=68 bpm, VMQV=199/91 mmhg, SpO2=97.0 %, Resp=22 B/min 12:21:28 MD paged 12:22:06 MD responded 12:24:33 HR=65 bpm, SYUS=602/83 mmhg, SpO2=95.0 %, Resp=17 B/min 12:24:56 MD arrived. Time Out. Correct patient, correct procedure, correct physician, labs, allergies, and equipment verified with slabber light 12:28:32 team present. Fire risk assesment completed (see hard stop sheet for coding). Time Out Conc urred by MD and individual staff in procedure. 12:28:54 2 mg VERSED given in lab by Anders Kenney RN in Left Antecubital via Peripheral IV. Ordered by Meliton Reyes. 12:30:00 HR=66 bpm, EMDW=126/88 mmhg, SpO2=96 %, Resp=15 B/min 12:33:09 25 mcg FENTANYL given in lab by Anders Kenney RN in Left Antecubital via Peripheral IV. Ord ered by Meliton Reyes. 12:34:23 Pressure channel 2 zeroed. 12:34:31 HR=68 bpm, NDGX=526/87 mmhg, SpO2=95.0 %, Resp=19 B/min 12:35:03 Case Start 12:35:05 5 mL 1% XYLOCAINE given in lab by Meliton Reyes in Right Radial via Subcutaneous. 12:36:20 Access site was Right Radial Artery . A SHEATH, FR6 RADIAL PRELUDE EASE 11CM FR 6 was advanced into the Radial (right) using the Perc utaneous 12:36:30 technique. 12:36:39 200 mcg NTG (IC) given in lab by Meliton Reyes in Right Radial via Intra-arterial. A JR 5.0 INFINITI CATHETER FR 5 was advanced over a wire. OMNIPAQUE, 350 MG, 150ML 150ML was us ed for 12:36:54 injections. 12:37:14 The RCA was injected and visualized at various angles. OMNIPAQUE, 350 MG, 150ML 150ML used . After removing the current catheter a JL 3.5 INFINITI CATHETER FR 5 was advanced over a WIRE, E XCHANGE 260CM 12:37:45 3MMJ 260CM. 12:39:08 The LCA was injected and visualized at various angles. OMNIPAQUE, 350 MG, 150ML 150ML used . Recorded Pressure: Ao, HR=66, Condition=Condition 1 12:39:22 (Aorta) Ao 117/73/91 12:39:30 HR=68 bpm, VEHW=744/84 mmhg, SpO2=91.0 %, Resp=21 B/min 12:41:01 Catheter was removed After removing the current catheter a XBLAD 3.5 GUIDE CATHETER FR 6 was advanced over a WIRE, E XCHANGE 12:41:01 260CM 3MMJ 260CM. 12:41:44 5000 units HEPARIN given in lab by Anders Kenney RN in Left Antecubital via Peripheral IV. Ordered by Meliton Reyes. 12:44:31 HR=70 bpm, JOJU=367/84 mmhg, SpO2=93.0 %, Resp=16 B/min 12:47:42 Pressure channel 2 zeroed. 12:49:30 HR=67 bpm, YWSY=260/80 mmhg, SpO2=93.0 %, Resp=16 B/min 12:49:53 A PRIME WIRE, VERRATA 185CM 185CM was inserted via Radial (right). 12:50:50 2000 units HEPARIN given in lab by Anders Kenney RN in Left Antecubital via Peripheral IV. Ordered by Meliton Reyes. 140 mcg/kg/min ADENOSINE DRIP given in lab by Anders Kenney RN in Left Antecubital via Peripher al IV. Pump/Drip 12:53:12 Flow = 883.68 ml/hr using NaCl .9 with a concentration of 90 mg in 90 ml. Ordered by Johann Reyes. 12:54:09 Flow Wire was was placed in the LAD Mid. The FFR measures 0.83 percent. 12:54:29 HR=65 bpm, ZLQB=738/87 mmhg, SpO2=96.0 %, Resp=15 B/min 140 mcg/kg/min ADENOSINE DRIP STOPPED given in lab by Anders Kenney RN. Pump/Drip Flow = 0 ml/ hr using D5W. 12:55:42 Ordered by Meliton Reyes. 12:56:50 1 mg VERSED given in lab by Anders Kenney RN in Left Antecubital via Peripheral IV. Ordere d by Meliton Reyes. 12:57:11 25 mcg FENTANYL given in lab by Anders Kenney RN in Left Antecubital via Peripheral IV. Or dered by Meliton Reyes. 12:59:34 HR=72 bpm, WIEB=394/90 mmhg, SpO2=97 %, Resp=8 B/min A STENT, 3.0 18MM HEBER 3.0 18MM was advanced through a XBLAD 3.5 GUIDE CATHETER FR 6 over a [place] WIRE, 12:59:45 VERRATA 185CM 185CM. A STENT, 3.0 18MM HEBER 3.0 18MM was deployed using a 30 MARISOL INDEFLATOR at 18 atmospheres for 2 0 seconds in 13:00:03 the LAD Mid. 13:00:33 Delivery device removed 13:00:34 600 mg PLAVIX given in lab by Anders Kenney, RN via Oral. Ordered by Meliton Reyes. 13:01:31 Wire removed 13:01:41 Catheter was removed 13:03:21 Case End (Physician broke scrub) 13:03:33 Activated Clotting Time Drawn 13:04:33 HR=68 bpm, QUMV=452/94 mmhg, SpO2=95.0 %, Resp=19 B/min Radial Compression Device Used. 13 mLs of air placed in BAND, RADIAL COMPRESSION TR LARGE 29 2 9CM. Affected 13:04:53 hand 96 % O2 saturation. 13:05:02 No case complications noted. 13:05:08 Cine recording checked. 13:05:30 Bedside Report will be given. 13:05:31 Implantable Device card placed in patient's chart. 13:05:37 Report called to floor. 13:05:41 A Left Heart Cath was performed. 13:12:42 Patient moved to stretcher 13:14:12 Vitals capture stopped. End Study - Contrast Media Used In Study Contrast Total Opened (mL) Total Used (mL) Total Wasted (mL) Omnipaque 150 70 80 End Study - Maximum Contrast Load Max Contrast Load (mL) 525.9 End Study - Radiation Exposure Fluoro Time (minutes) 3.6 End Study - Patient Disposition Complications Transferred To Interventional Outcome No Telemetry Bed successful
[2018-06-17 15:20] VITALS: BP 147/86; RESP 18; TEMP 97.5
[2018-06-17 17:38] VITALS: PULSE 70
[2018-06-17] MEDS ORDERED: Temazepam 15 MG Capsule PO PRN (21:00)
--- NOTE | 2018-06-18 10:36 | ECG ---
Date Performed: 06/16/2018 Time Performed: 16:00:16 PTAGE: 58 years EKG: Sinus rhythm NORMAL ECG NO PREVIOUS TRACING DOCTOR: Srinivasan Mckeon Interpretating Date/Time 06/18/2018 10:34:28
--- NOTE | 2018-06-18 10:36 | ECG ---
Date Performed: 06/16/2018 Time Performed: 18:59:36 PTAGE: 58 years EKG: Sinus rhythm NORMAL ECG PREVIOUS TRACING : 06/16/2018 16.00 DOCTOR: Srinivasan Mckeon Interpretating Date/Time 06/18/2018 10:34:09
--- NOTE | 2018-06-18 10:37 | ECG ---
Date Performed: 06/16/2018 Time Performed: 13:44:27 PTAGE: 58 years EKG: Sinus rhythm NORMAL ECG NO PREVIOUS TRACING DOCTOR: Srinivasan Mckeon Interpretating Date/Time 06/18/2018 10:34:42
--- NOTE | 2018-06-28 14:00 | MA ---
cc: Meliton Reyes MD DATE: 06/17/2018 PROCEDURES PERFORMED: 1. Fluoroscopy with interpretation. 2. Coronary angiography. METHOD: Risks, benefits and alternatives discussed with the patient. The patient understood and consented to the procedure. The patient was brought into the catheterization lab, placed on the catheterization table. The right wrist was prepped and draped in sterile fashion. The right wrist was anesthetized with 2% lidocaine. The right radial artery was cannulated and a 6-[place] 7 cm sheath was placed without difficulty. CORONARY ANGIOGRAPHY: 1. Left main coronary artery is angiographically normal; very long caliber size vessel. 2. Left anterior descending coronary artery is angiographically normal. 3. Left circumflex coronary artery has mild luminal irregularities. 4. Right coronary artery is angiographically normal. CONCLUSIONS: Minimal nonobstructive coronary disease. ADDENDUM CORONARY ANGIOGRAPHY: The left anterior descending coronary artery had a 75% stenosis in the proximal - mid segment. PERCUTANEOUS CORONARY INTERVENTION; 1. Left coronary circulation was selectively engaged with 6-[place] XBLAD 3.5 guide catheter. A 0.014-inch 180 cm [employer]Bank Runthrough wire was navigated down to the distal left anterior descending coronary artery. A 3.0 mm x 18 mm RX Resolute [place] drug-eluting stent was advanced out the mid left anterior descending coronary artery and deployed. Repeat angiography showed no residual stenosis, RUSS 3 flow. Angiomax was administered throughout the entire procedure to maintain appropriate anticoagulation. CONCLUSIONS: 1. Single vessel coronary disease involving the proximal - mid left anterior descending coronary artery. 2. Successful percutaneous coronary intervention with drug-eluting stent to the mid left anterior descending coronary artery. Meliton Reyes MD DAVID/ld , 01:23 PM , 01:30 PM
== END 2018-06-17 18:20 | disposition home or self-care (01) ==
LOC: NEDA 13:23 → NEPC 13:23 → NEPHCDU 17:28 → HCIS 06-17 10:17
PROVIDERS: ADMIT Internal Medicine Cardiovascular Disease; ATTEND Internal Medicine Cardiovascular Disease